=== PATIENT | female | born 1980 | race Caucasian/White ===

== ENCOUNTER 2018-02-22 21:08 | Emergency (ER) | payer OTHER ==
[~2018-02-22] VITALS: Ht 170.2 cm; Wt 74.8 kg
[2018-02-22] MEDS ORDERED: ZOLOFT50 M1 PO (21:33)
[2018-02-23] MEDS ORDERED: IBUPROFEN 800800 MG PO (00:45)
[2018-02-23] MEDS ORDERED: NORCO 5-325 TA1 EACH PO (00:45)
[2018-02-23] MEDS ORDERED: CYCLOBENZAPRINE10 MG PO (00:45)
[2018-02-23 00:57] VITALS: BP 111/69
== END 2018-02-23 00:59 | disposition home or self-care (01) ==
LOC: M.ERS 21:08
DX: S16.1XXA Strain of muscle, fascia and tendon at neck level, initial encounter (principal); F32.9 Major depressive disorder, single episode, unspecified; F17.210 Nicotine dependence, cigarettes, uncomplicated; Z88.6 Allergy status to analgesic agent; Z88.8 Allergy status to other drugs, medicaments and biological substances; X58.XXXA Exposure to other specified factors, initial encounter; Y93.89 Activity, other specified; Y92.89 Other specified places as the place of occurrence of the external cause; Y99.8 Other external cause status

== ENCOUNTER 2019-09-15 12:33 | Emergency (ER) | payer OTHER ==
[~2019-09-15] VITALS: Ht 167.6 cm; Wt 63.5 kg
[~2019-09-15 12:33] MED LIST: CYCLOBENZAPRINE10 MG PO; IBUPROFEN 800800 MG PO; NORCO 5-325 TA1 EACH PO; ZOLOFT50 M1 PO
[2019-09-15] MEDS ORDERED: ENBRACE HR SOF1 EACH PO (12:46)
[2019-09-15 12:59] LABS: URINE BILIRUBIN NEGATIVE (Negative); URINE BLOOD NEGATIVE (Negative); URINE CLARITY CLEAR; URINE COLOR YELLOW; URINE GLUCOSE-RANDOM NEGATIVE (Negative); URINE KETONES NEGATIVE (Negative); URINE LEUKOCYTES-REFLEX NEGATIVE (Negative); URINE NITRITE-REFLEX NEGATIVE (Negative); URINE PROTEIN NEGATIVE (Negative); URINE SPECIFIC GRAVITY 1.025 (1.005-1.030); URINE UROBILINOGEN 0.2 E.U./dl (0.2-1.0)
[2019-09-15 13:00] LABS: HEMATOCRIT 38.1 % (37.0-47.0); MCH 29.4 pg (26.0-34.0); MCHC 34.2 g/dL (28.0-37.0); MPV 7.5 fl. (7.2-11.1); NUCLEATED RBCS 0 /100WBC; PLATELET COUNT* 524 thou/uL (150-400); RBC 4.43 mil/uL (4.20-5.00); RDW-CV 13.4 % (10.5-14.5); WBC 9.7 thou/uL (4.0-11.0)
[2019-09-15 13:07] LABS: CALCIUM 9.2 mg/dL (8.5-10.1); CREATININE 0.7 mg/dL (0.6-1.3); POTASSIUM 3.7 mmol/L (3.5-5.1)
[2019-09-15 13:12] LABS: ALBUMIN 3.5 g/dL (3.4-5.0); TOTAL BILIRUBIN 0.3 mg/dL (<0.1-1.0)
[2019-09-15 13:26] LABS: TOTAL PROTEIN 7.9 g/dL (6.4-8.2)
[2019-09-15 13:29] LABS: ABSOLUTE EOSINOPHILS 0.5 thou/uL (0.0-0.7); ABSOLUTE LYMPHOCYTES 3.1 thou/uL (0.8-5.3); ABSOLUTE MONOCYTES 0.3 thou/uL (0.0-1.2); ABSOLUTE NEUTROPHILS 5.8 thou/uL (1.6-8.1); PLATELET ESTIMATE ADEQUATE
[2019-09-15] MEDS ORDERED: TRINATE TABLET1 EACH PO (13:50)
[2019-09-15] MEDS ORDERED: NORCO 5-325 TA1 EAC1 PO (14:39)
[2019-09-15 14:46] VITALS: BP 130/88
== END 2019-09-15 14:47 | disposition home or self-care (01) ==
LOC: M.ERS 12:33
PROVIDERS: Nurse Practitioner Family
DX: O46.91 Antepartum hemorrhage, unspecified, first trimester (principal); R10.2 Pelvic and perineal pain; F32.9 Major depressive disorder, single episode, unspecified; F17.210 Nicotine dependence, cigarettes, uncomplicated; Z3A.01 Less than 8 weeks gestation of pregnancy; Z88.6 Allergy status to analgesic agent; Z88.8 Allergy status to other drugs, medicaments and biological substances

== ENCOUNTER 2019-11-03 20:25 | Emergency (ER) | payer OTHER ==
[~2019-11-03] VITALS: Ht 170.2 cm; Wt 69.8 kg
[~2019-11-03 20:25] MED LIST changes: +ENBRACE HR SOF1 EACH PO; +NORCO 5-325 TA1 EAC1 PO; +TRINATE TABLET1 EACH PO
[2019-11-03] MEDS ORDERED: TYLENOL WITH CO1 TA1 PO (21:12)
[2019-11-03] MEDS ORDERED: PREDNISONE 10 M10 MG PO (21:18)
[2019-11-03 21:19] LABS: INFLUENZA A ANTIGEN Negative (Negative); INFLUENZA B ANTIGEN Negative (Negative)
[2019-11-03 21:45] VITALS: BP 128/70
== END 2019-11-03 21:45 | disposition home or self-care (01) ==
LOC: M.ERS 20:25
PROVIDERS: Physician Assistant
DX: J02.0 Streptococcal pharyngitis (principal); F32.9 Major depressive disorder, single episode, unspecified; F17.200 Nicotine dependence, unspecified, uncomplicated; Z88.8 Allergy status to other drugs, medicaments and biological substances; Z88.5 Allergy status to narcotic agent

== ENCOUNTER 2021-08-01 09:23 | Emergency (ER) | payer OTHER ==
[~2021-08-01] VITALS: Ht 167.6 cm; Wt 68.0 kg
[~2021-08-01 09:23] MED LIST changes: +PREDNISONE 10 M10 MG PO; +TYLENOL WITH CO1 TA1 PO
[2021-08-01] MEDS ORDERED: VENTOLIN HFA 1818 GM INH (10:06)
[2021-08-01 10:16] VITALS: BP 119/67
== END 2021-08-01 10:21 | disposition home or self-care (01) ==
LOC: M.ERS 09:23
DX: T59.811A Toxic effect of smoke, accidental (unintentional), initial encounter (principal); R06.02 Shortness of breath; R51.9 Headache, unspecified; R42 Dizziness and giddiness; R05 Cough; F32.9 Major depressive disorder, single episode, unspecified; Z79.899 Other long term (current) drug therapy; Z88.8 Allergy status to other drugs, medicaments and biological substances; Y92.89 Other specified places as the place of occurrence of the external cause